=== PATIENT | male | born 1970 | race Two or more races ===

== ENCOUNTER 2018-03-05 11:14 | Emergency (ER) | payer BC ==
--- NOTE | 2018-03-05 12:10 | EDM.PDOC ---
ED HPI GENERAL MEDICAL PROBLEM - General Chief Complaint: Respiratory Problem Stated Complaint: COUGH WITH PAIN Time Seen by Provider: 03/05/18 12:05 Source of Information: Reports: Patient History Limitations: Reports: No Limitations - History of Present Illness INITIAL COMMENTS - FREE TEXT/NARRATIVE: HISTORY AND PHYSICAL: Cough History of present illness: Patient is a 47 year old male who presents to the emergency room with complaints of cough and left low anterior rib pain. He states he's had a cough for approximately one week with subjective fever and chills. Yesterday he states "I coughed so hard that I pulled a muscle". He now has pain to the left low rib area with coughing, deep breathing or movement. He has been eating and drinking appropriately. Denies any shortness of breath or chest pain. Denies any abdominal pain, nausea, vomiting, diarrhea, constipation or dysuria. Review of systems: As per history of present illness and below otherwise all systems reviewed and negative. Past medical history: As per history of present illness and as reviewed below otherwise noncontributory. Surgical history: As per history of present illness and as reviewed below otherwise noncontributory. Social history: See social history for further information Family history: As per history of present illness and as reviewed below otherwise noncontributory. Physical exam: General: Well-developed and well-nourished 47 showed male. Alert and oriented. Nontoxic appearing and in no acute distress. HEENT: Atraumatic, normocephalic, pupils equal and reactive bilaterally, negative for conjunctival pallor or scleral icterus, mucous membranes moist, TMs normal bilaterally, throat clear, neck supple, nontender, trachea midline. No drooling or trismus noted. No meningeal signs. No hot potato voice noted. Lungs: Clear to auscultation, breath sounds equal bilaterally, chest nontender. Heart: S1S2, regular rate and rhythm without overt murmur Abdomen: Soft, nondistended, nontender. Negative for masses or hepatosplenomegaly. Negative for costovertebral tenderness. Pelvis: Stable nontender. Genitourinary: Deferred. Rectal: Deferred. Skin: Intact, warm, dry. No lesions or rashes noted. Extremities: Atraumatic, negative for cords or calf pain. Neurovascular unremarkable. Neuro: Awake, alert, oriented. Cranial nerves II through XII unremarkable. Cerebellum unremarkable. Motor and sensory unremarkable throughout. Exam nonfocal. Notes: Negative influenza screening. We'll treat with medication. Patient education completed. He voices understanding and agreeable to plan of care. Denies any further questions or concerns at this time. Diagnostics: Influenza, chest x-ray Therapeutics: None Prescription: Azithromycin Phenergan with Codeine ProAir Inhaler Impression: Bronchitis Plan: 1. Please take your medication as directed. 2. Tylenol and/or ibuprofen as needed for pain management. 3. Follow-up with your primary care provider in the next 1-2 days. Return to the ED as needed and as discussed. Definitive disposition and diagnosis as appropriate pending reevaluation and review of above. Left Rib pain Pain Score (Numeric/FACES): 10 - Related Data Allergies Allergy/AdvReac Type Severity Reaction Status Date / Time No Known Allergies Allergy Verified 03/05/18 12:00 Home Meds: Home Meds . [No Known Home Meds] 03/05/18 [History] Past Medical History - Past Health History Medical/Surgical History: Denies Medical/Surgical History Dermatologic History: Reports: Psoriasis Social & Family History - Tobacco Use Smoking Status *Q: Former Smoker Used Tobacco, but Quit: Yes Month/Year Tobacco Last Used: 2017 - Caffeine Use Caffeine Use: Reports: Coffee, Energy Drinks, Soda, Tea - Recreational Drug Use Recreational Drug Use: No ED ROS GENERAL - Review of Systems Review Of Systems: ROS reveals no pertinent complaints other than HPI. ED EXAM, GENERAL - Physical Exam Exam: See Below (See dictation) Course - Vital Signs Last Recorded V/S: Last Vital Signs Temp 97.7 F 03/05/18 11:57 Pulse 99 03/05/18 11:57 Resp 16 03/05/18 11:57 BP 183/108 H 03/05/18 11:57 Pulse Ox 96 03/05/18 11:57 - Orders/Labs/Meds Orders: Active Orders 24 hr Category Date Time Status Chest 2V [CR] Stat Exams 03/05/18 12:06 Taken Departure - Departure Time of Disposition: 12:34 Disposition: Home, Self-Care 01 Clinical Impression: Bronchitis - Discharge Information Instructions: Acute Bronchitis, Adult, [id number] Referrals: PCP,None [Primary Care Provider] - Forms: ED Department Discharge Additional Instructions: The following information is given to patients seen in the emergency department who are being discharged to home. This information is to outline your options for follow-up care. We provide all patients seen in our emergency department with a follow-up referral. The need for follow-up, as well as the timing and circumstances, are variable depending upon the specifics of your emergency department visit. If you don't have a primary care physician on staff, we will provide you with a referral. We always advise you to contact your personal physician following an emergency department visit to inform them of the circumstance of the visit and for follow-up with them and/or the need for any referrals to a consulting specialist. The emergency department will also refer you to a specialist when appropriate. This referral assures that you have the opportunity for follow-up care with a specialist. All of these measure are taken in an effort to provide you with optimal care, which includes your follow-up. Under all circumstances we always encourage you to contact your private physician who remains a resource for coordinating your care. When calling for follow-up care, please make the office aware that this follow-up is from your recent emergency room visit. If for any reason you are refused follow-up, please contact the [facility] Emergency Department at and asked to speak to the emergency department charge nurse. [facility] [address] [place] [id number] [address] 1. Please take your medication as directed. 2. Tylenol and/or ibuprofen as needed for pain management. 3. Follow-up with your primary care provider in the next 1-2 days. Return to the ED as needed and as discussed. - My Orders Last 24 Hours: My Active Orders 03/05/18 12:06 Chest 2V [CR] Stat - Assessment/Plan Last 24 Hours: My Active Orders 03/05/18 12:06 Chest 2V [CR] Stat
--- NOTE | 2018-03-05 13:27 | CR ---
EXAMINATION: Two-view chest (PA and Lateral views). HISTORY: Shortness of breath. FINDINGS: The trachea is midline. The cardiomediastinal silhouette is within normal limits. No pulmonary infiltrates, effusions or pneumothorax. Osseous structures appear unremarkable. IMPRESSION: No acute cardiopulmonary process.
== END 2018-03-05 12:59 | disposition home or self-care (01) ==
LOC: MW.ED 11:14
DX: J40 Bronchitis, not specified as acute or chronic (principal)
CPT/HCPCS: 71046; 71046-26; 87804; 99283

== ENCOUNTER 2018-10-25 11:15 | Emergency (ER) | payer BC ==
--- NOTE | 2018-10-25 11:31 | EDM.PDOC ---
ED HPI GENERAL MEDICAL PROBLEM - General Chief Complaint: Lower Extremity Injury/Pain Stated Complaint: LEFT KNEE BUMP Time Seen by Provider: 10/25/18 11:19 Source of Information: Reports: Patient History Limitations: Reports: No Limitations - History of Present Illness INITIAL COMMENTS - FREE TEXT/NARRATIVE: HISTORY AND PHYSICAL: History of present illness: Patient is a 48-year-old male who presents to the emergency room today with complaints of pain to the left posterior calf. He states yesterday he noticed some tenderness and slight redness which has progressively gotten worse today. Area is painful to palpation and with weight bearing. He does have some redness to the anterior carlin which has been diagnosed as chronic plaque psoriasis (no concerns with his psoriasis). Denies any injury, trauma or falls. Patient denies any fever, chills, headache, change in vision, syncope or near syncope. Denies any chest pain, back pain, shortness of breath or cough. Denies any GI or symptoms. Patient has been eating and drinking appropriately. Review of systems: As per history of present illness and below otherwise all systems reviewed and negative. Past medical history: As per history of present illness and as reviewed below otherwise noncontributory. Surgical history: As per history of present illness and as reviewed below otherwise noncontributory. Social history: See social history for further information Family history: As per history of present illness and as reviewed below otherwise noncontributory. Physical exam: General: Well-developed and well-nourished 48-year-old male. Alert and oriented. Nontoxic appearing but did O acute HEENT: Atraumatic, normocephalic, pupils equal and reactive bilaterally, negative for conjunctival pallor or scleral icterus, mucous membranes moist, TMs normal bilaterally, throat clear, neck supple, nontender, trachea midline. No drooling or trismus noted. No meningeal signs. No hot potato voice noted. Lungs: Clear to auscultation, breath sounds equal bilaterally, chest nontender. Heart: S1S2, regular rate and rhythm without overt murmur Abdomen: Soft, nondistended, nontender. Negative for masses or hepatosplenomegaly. Negative for costovertebral tenderness. Skin: Plaque psoriasis noted to bilateral anterior shins (chronic). Circular erythematous area to the right posterior proximal calf, nonfluctuant, nonindurated. Approximately the width of a golf ball, tender with palpation. No lesions or rashes noted. Extremities: Atraumatic, moves all extremities per self without difficulty or deficits, negative for cords. Strong pedal pulses bilaterally. Good CMS. Neurovascular unremarkable. Neuro: Awake, alert, oriented. Cranial nerves II through XII unremarkable. Cerebellum unremarkable. Motor and sensory unremarkable throughout. Exam nonfocal. Notes: Normal venous ultrasound exam. No evidence of deep vein thrombosis within the left lower extremity. Edema identified in the calf in the region of patient`s area of erythema. This may represent an early abscess. The area is nonfluctuant with diffuse erythema. We'll treat as a cellulitis. We did discuss that the area may need to be drained at that this time I cannot perform an I&D. We'll treat with Keflex. Upon preparing the patient for discharge she does request that I give him medications for his chronic psoriasis. He states he has not seen a provider for his chronic psoriasis in many years. I did encourage him to see a specialist such as rheumatology as this is not a new/acute problem. Supportive care measures were reviewed and discussed. Voices understanding and is agreeable to plan of care. Denies any further questions or concerns at this time. Diagnostics: CBC, U/S Therapeutics: None Prescription: Keflex [place] Impression: Cellulitis Plan: 1. Take the antibiotic as directed. Apply gentle heat to the area. 2. Tylenol and/or ibuprofen as needed for pain management. 3. You should follow up with a Group Director Experience regarding your Psoriasis; closets one is Dr Rex Hayes in [place]. [phone]. 4. Return to the ED as needed and as discussed. Definitive disposition and diagnosis as appropriate pending reevaluation and review of above. Left calf Pain Score (Numeric/FACES): 8 - Related Data Allergies Allergy/AdvReac Type Severity Reaction Status Date / Time No Known Allergies Allergy Verified 10/25/18 11:25 Home Meds: Home Meds Acetaminophen/HYDROcodone [[place] 325-5 MG] 1 dose PO Q4H #20 tablet 10/25/18 [Rx ] cephALEXin [Keflex] 500 mg PO TID 10 Days #30 cap 10/25/18 [Rx] Past Medical History - Past Health History Medical/Surgical History: Denies Medical/Surgical History Dermatologic History: Reports: Psoriasis Social & Family History - Caffeine Use Caffeine Use: Reports: Coffee, Energy Drinks, Soda, Tea Review of Systems - Review of Systems Review Of Systems: ROS reveals no pertinent complaints other than HPI. ED EXAM, GENERAL - Physical Exam Exam: See Below (See dictation) Course - Vital Signs Last Recorded V/S: Last Vital Signs Temp 98.3 F 10/25/18 11:26 Pulse 103 H 10/25/18 11:26 Resp 16 10/25/18 11:26 BP 144/97 H 10/25/18 11:26 Pulse Ox 95 10/25/18 11:26 - Orders/Labs/Meds Labs: Laboratory Tests 10/25/18 Range/Units 11:36 WBC 11.00 (4.0-11.0) K/uL RBC 4.77 (4.50-5.90) M/uL Hgb 15.8 (13.0-17.0) g/dL Hct 47.3 (38.0-50.0) % MCV 99.2 H (80.0-98.0) fL MCH 33.1 H (27.0-32.0) pg MCHC 33.4 (31.0-37.0) g/dL RDW Std Deviation 47.4 (28.0-62.0) fl RDW Coeff of Emil 13 (11.0-15.0) % Plt Count 300 (150-400) K/uL MPV 9.60 (7.40-12.00) fL Neut % (Auto) 61.2 (48.0-80.0) % Lymph % (Auto) 20.9 (16.0-40.0) % [place] % (Auto) 14.3 (0.0-15.0) % Eos % (Auto) 3.2 (0.0-7.0) % Baso % (Auto) 0.4 (0.0-1.5) % Neut # (Auto) 6.7 H (1.4-5.7) K/uL Lymph # (Auto) 2.3 (0.6-2.4) K/uL [place] # (Auto) 1.6 H (0.0-0.8) K/uL Eos # (Auto) 0.4 (0.0-0.7) K/uL Baso # (Auto) 0.0 (0.0-0.1) K/uL Nucleated RBC % 0.0 /100WBC Nucleated RBCs # 0 K/uL Departure - Departure Time of Disposition: 12:26 Disposition: Home, Self-Care 01 Clinical Impression: Cellulitis Qualifiers: Site of cellulitis: extremity Site of cellulitis of extremity: lower extremity Laterality: left Qualified Code(s): L03.116 - Cellulitis of left lower limb - Discharge Information Prescriptions: Acetaminophen/HYDROcodone [[place] 325-5 MG] 1 dose PO Q4H #20 tablet cephALEXin [Keflex] 500 mg PO TID 10 Days #30 cap Instructions: Cellulitis, Adult, [id number] Referrals: PCP,None [Primary Care Provider] - Forms: ED Department Discharge Additional Instructions: The following information is given to patients seen in the emergency department who are being discharged to home. This information is to outline your options for follow-up care. We provide all patients seen in our emergency department with a follow-up referral. The need for follow-up, as well as the timing and circumstances, are variable depending upon the specifics of your emergency department visit. If you don't have a primary care physician on staff, we will provide you with a referral. We always advise you to contact your personal physician following an emergency department visit to inform them of the circumstance of the visit and for follow-up with them and/or the need for any referrals to a consulting specialist. The emergency department will also refer you to a specialist when appropriate. This referral assures that you have the opportunity for follow-up care with a specialist. All of these measure are taken in an effort to provide you with optimal care, which includes your follow-up. Under all circumstances we always encourage you to contact your private physician who remains a resource for coordinating your care. When calling for follow-up care, please make the office aware that this follow-up is from your recent emergency room visit. If for any reason you are refused follow-up, please contact the [facility] Emergency Department at and asked to speak to the emergency department charge nurse. [facility] [address] [place] [id number] [facility] [address] [place] [address] 1. Take the antibiotic as directed. Apply gentle heat to the area. 2. Tylenol and/or ibuprofen as needed for pain management. 3. You should follow up with a Group Director Experience regarding your Psoriasis; closets one is Dr Rex Hayes in [place]. [phone]. 4. Return to the ED as needed and as discussed.
--- NOTE | 2018-10-25 12:19 | US ---
INDICATION: Redness and pain in left calf. COMPARISON: None. TECHNIQUE: A compression venous ultrasound exam was performed of the left lower extremity using balderas-scale imaging, color Doppler and spectral Doppler analysis. FINDINGS: Sonographic imaging of the left lower extremity demonstrates normal compressibility and color Doppler venous blood flow within the common femoral vein, deep femoral vein, and the proximal greater saphenous vein. Within the thigh, the femoral vein is patent and compressible. At a lower level, the popliteal and posterior tibial veins also show normal compressibility and color Doppler venous blood flow. In the left groin, a prominent lymph node is identified. This maintains a fatty hilum and a thin smooth cortex. Edema is identified in the lower leg in the region of erythema. Within this area of edema, a 3 millimeter hypoechoic areas identified. This is in the posterior calf. This may represent an early abscess Limited imaging of the contralateral groin demonstrates a normal spectral waveform and color Doppler venous blood flow within the right common femoral vein. IMPRESSION: Normal venous ultrasound exam. No evidence of deep vein thrombosis within the left lower extremity. Edema identified in the calf in the region of patient`s area of erythema. This may represent an early abscess. Follow-up is recommended Dictated by Tiffanie Guerrero MD @ Oct 25 2018 12:14PM Signed by Dr. Tiffanie Guerrero @ Oct 25 2018 12:16PM
== END 2018-10-25 12:45 | disposition home or self-care (01) ==
LOC: MW.ED 11:15
DX: L03.116 Cellulitis of left lower limb (principal); L40.0 Psoriasis vulgaris
CPT/HCPCS: 36415; 85025; 93971-26-LT; 93971-LT; 99283; 99283-25